=== PATIENT | female | born 1985 | race Caucasian/White ===

== ENCOUNTER 2019-12-19 13:07 | Emergency (ER) | payer OTHER, SELFPAY ==
[2019-12-19 13:20] VITALS: BP 121/70; PULSE 60; RESP 18; TEMP 36.7; O2SAT 98
--- NOTE | 2019-12-19 13:31 | ED.WOUNDLAC ---
HPI - Wound/Laceration General Chief Complaint: Wound/Laceration Stated Complaint: cut on right hand Time Seen by Provider: 12/19/19 13:31 Source: patient and RN notes reviewed History of Present Illness HPI narrative: Patient is a 34-year-old female that presents the urgent care with complaints of right hand laceration. Patient states that she was using her crafting scissors to cut open a box and punctured the palm of her right hand. Patient states she is now having some tingling in the tips of her middle and index finger of the right hand. Patient states that she cannot feel them they just feel a little numb . Patient cleaned out the wound and came straight to the facility. No other acute complaints. No acute distress noted. Patient read the plan of care. Related Data Home Medications Medication Instructions Recorded Confirmed No Home Medications 12/19/19 12/19/19 Allergies Allergy/AdvReac Type Severity Reaction Status Date / Time No Known Allergies Allergy Unknown Verified 12/19/19 13:32 Review of Systems Review of Systems: Narrative: CONSTITUTIONAL: Denies fever, chills, or sweats. EYES: Denies visual changes, redness, or discharge. ENT: Denies rhinorrhea, congestion, sore throat, or otalgia. CARDIOVASCULAR: Denies chest pain, palpitations, or edema. RESPIRATORY: Denies cough or dyspnea. GASTROINTESTINAL: Denies abdominal pain, nausea, vomiting, or diarrhea. GENITOURINARY: Denies dysuria or hematuria. SKIN: Reports of a puncture laceration to the right palm MUSCULOSKELETAL: Denies back pain, joint pain, or myalgia. NEUROLOGIC: Denies headache, numbness, or weakness. All other systems reviewed are negative, except as documented in HPI. PMFSH Comments At the time of my signature, I reviewed and agree with the nursing past medical, surgical, social, and family history. There is no relevant family history pertinent to the patient complaint. Exam Narrative: Exam Narrative: GENERAL: This is a well-nourished, well-developed patient, in no apparent distress. HEAD: normocephalic, atraumatic. EYES: PERRL. Sclera clear/white. Vision is grossly intact. EARS: External ears normal NOSE: External nose normal with no obvious nasal discharge THROAT: Mucous membranes moist NECK: Neck supple SKIN: 0.25 cm linear puncture wound noted to the palm of the right hand NEURO: awake, alert, and oriented to person, place and time. There were no obvious focal neurologic abnormalities. EXTREMITIES: No clubbing, cyanosis, or edema. Positive strong right radial pulse with capillary refill less than 2 seconds. Range of motion to right hand/fingers within normal limits; appropriate blanching to all kezia of her right hand Course Vital Signs Vital signs: Vital Signs Temperature 98.1 F 12/19/19 13:20 Pulse Rate 60 12/19/19 13:20 Respiratory Rate 18 12/19/19 13:20 Blood Pressure 121/70 12/19/19 13:20 Pulse Oximetry 98 12/19/19 13:20 Temperature 98.1 F 12/19/19 13:20 Pulse Rate 60 12/19/19 13:20 Respiratory Rate 18 12/19/19 13:20 Blood Pressure 121/70 12/19/19 13:20 Pulse Oximetry 98 12/19/19 13:20 Reviewed MDM - Wound/Laceration MDM Narrative Medical decision making narrative: Advised the patient to keep the wound very clean and free of debris. May use a Band-Aid and Neosporin if necessary. Be aware of signs and symptoms of infection such as redness, swelling, drainage from the wound. If you experience any of the above symptoms associated with fever or increased tingling of the fingertips ?go to the emergency room. Follow-up with PCP within 2 to 5 days or for worsening symptoms or failure to improve. Patient is refusing tetanus. Differential Diagnosis Differential diagnosis: Likely laceration, abscess, abrasion and avulsion of skin Critical Care Time Critical Care Time Critical Care Time: No Discharge Plan Discharge Clinical Impression: Puncture wound Patient Disposition: H
== END 2019-12-19 13:40 | disposition home or self-care (01) ==
PROVIDERS: Emergency Provider Nurse Practitioner Family
DX: S61.431A Puncture wound without foreign body of right hand, initial encounter (principal); W26.8XXA Contact with other sharp object(s), not elsewhere classified, initial encounter
CPT/HCPCS: 99202; G0463

== ENCOUNTER 2023-02-16 15:45 | Emergency (ER) | payer OTHER, SELFPAY ==
--- NOTE | ~2023-02-16 | XR_ITS ---
EXAMINATION: XR hand LT min 3V DATE: 02/16/2023 16:07 INDICATION: Left hand pain and swelling after punching a door one week prior TECHNIQUE: Posteroanterior, oblique and lateral views of the left hand were obtained. COMPARISON: None. FINDINGS: Bone alignment is normal. No fracture. Joint spaces are normal. Soft tissues are unremarkable. IMPRESSION: 1. Negative left hand radiographs. Reviewed, dictated and finalized at location A.
--- NOTE | 2023-02-16 15:51 | ED.EXTPRO ---
HPI - Extremity Problem General Chief complaint: Extremity Injury, Upper Stated complaint: swollen left hand Source: patient and RN notes reviewed History of Present Illness HPI Narrative: 37 yo F presents to urgent care with complaints of left hand pain and swelling. Pt states she punched a door 12 days ago and her hand has been hurting ever since. Pt states she applied a little ice to her hand. Denies any numbness, tingling, or other complaints. Related Data Home Medications Medication Instructions Recorded Confirmed No Home Medications 02/16/23 02/16/23 Allergies Allergy/AdvReac Type Severity Reaction Status Date / Time No Known Allergies Allergy Unknown Verified 02/16/23 16:01 Review of Systems Review of Systems: CONSTITUTIONAL: Denies fever, chills, or sweats. EYES: Denies visual changes, redness, or discharge. ENT: Denies otalgia and sore throat CARDIOVASCULAR: Denies chest pain, palpitations, or edema. RESPIRATORY: Denies cough or dyspnea. GASTROINTESTINAL: Denies abdominal pain, nausea, vomiting, or diarrhea. GENITOURINARY: Denies dysuria or hematuria. SKIN: Denies rash or itching. MUSCULOSKELETAL:Left hand pain NEUROLOGIC: Denies headache, numbness, or weakness. Pertinent positives per HPI. PMFSH Past Medical History Medical History History of vaginal delivery Surgical History Surgical History H/O hand surgery H/O plastic surgery Labiaplasty Harbert teeth removed Family History Family History Grandparent Breast cancer Social History Social History Smoking status: Former smoker Smoking end date: 08/09/13 Alcohol intake: current Drinks per week: 10 Substance use: current Substance use type: marijuana Comments At the time of my signature, I reviewed and agree with the nursing past medical, surgical, social, and family history. There is no relevant family history pertinent to the patient complaint. Exam Narrative: GENERAL: This is a well-nourished, well-developed patient, in no apparent distress. HEAD: normocephalic, atraumatic. EYES: Sclera clear/white. Vision is grossly intact. EARS: External ears normal, auditory canals clear and without drainage. Hearing grossly intact. NOSE: External nose normal with no obvious nasal discharge, nares without redness, no rhinorrhea. CARDIOVASCULAR: Regular rate RESPIRATORY: No respiratory distress SKIN: warm, intact with no suspicious lesions or rash, good texture and turgor. NEURO: awake, alert, and oriented to person, place and time. There were no obvious focal neurologic abnormalities. EXTREMITIES: Mild tenderness and swelling over left 5th metacarpal Course Course Level of Care: Express Care Visit Vital Signs Vital signs: Vital Signs Temperature 97.6 F 02/16/23 15:52 Pulse Rate 60 02/16/23 15:52 Respiratory Rate 20 02/16/23 15:52 Blood Pressure 118/60 02/16/23 15:52 Pulse Oximetry 100 02/16/23 15:52 Oxygen Delivery Room Air 02/16/23 15:52 Temperature 97.6 F 02/16/23 15:52 Pulse Rate 60 02/16/23 15:52 Respiratory Rate 20 02/16/23 15:52 Blood Pressure 118/60 02/16/23 15:52 Pulse Oximetry 100 02/16/23 15:52 Oxygen Delivery Room Air 02/16/23 15:52 Reviewed MDM - Extremity (Nontraumatic) MDM Narrative Medical decision making narrative: Use the RICE method at home. May take ibuprofen and/or Tylenol if needed. If symptoms persist in 1 week after conservative treatment, follow-up with specialist. Differential Diagnosis Differential diagnosis: Likely gout and other (hand fracture, contusion) Imaging Data Radiologist's impression: [facility] [id number] [place] [address] XRay Report Signed Patient: Kaylin
[2023-02-16 15:52] VITALS: BP 118/60; PULSE 60; RESP 20; TEMP 36.4; O2SAT 100
== END 2023-02-16 16:31 | disposition home or self-care (01) ==
PROVIDERS: Emergency Provider Nurse Practitioner Family; PCP Family Medicine
DX: S60.222A Contusion of left hand, initial encounter (principal); W22.01XA Walked into wall, initial encounter; Z87.891 Personal history of nicotine dependence
CPT/HCPCS: 73130; 99213; G0463